=== PATIENT | male | born 1965 | race Two or more races ===

== ENCOUNTER 2018-04-07 15:46 | Inpatient (IN) | payer MEDICAID ==
[~2018-04-07] VITALS: Ht 167.6 cm; Wt 84.1 kg
[2018-04-07 15:51] VITALS: Ht 167.6 cm; Wt 84.1 kg
--- NOTE | 2018-04-07 16:13 | NUR ---
PT BIB FAMILY C/C CP STS WHILE AT WORK NO CP AT THIS TIME STS RASH X [address] ROB MANJARREZ
--- NOTE | 2018-04-07 16:33 | NUR ---
PLEASE ENTER FULL NAMES OF ACADEMIC AFFAIRS ASSISTANT/RN Patient data collected by (ACADEMIC AFFAIRS ASSISTANT):ANTHONY ALEXANDER Assessment reviewed and completed by (RN):ERNESTO SAAB
--- NOTE | 2018-04-07 16:40 | NUR ---
DR WAYNE AT BEDSIDE TO JOSSELINE
--- NOTE | 2018-04-07 17:10 | NUR ---
MEDICATED ORDERED THEN TAKEN TO RADIOLOGY FOR XRAY
[2018-04-07 17:20] LABS: PLATELET COUNT 549 x10^3mcL (130-400)
[2018-04-07 17:33] LABS: ATYPICAL LYMPH 1 %; BAND NEUTROPHIL 1 % (0-10); MONOCYTE 1 % (0-7); SEGMENTED NEUTROPHILS 90 % (37-75)
[2018-04-07 17:35] LABS: PLATELET MORPHOLOGY PLATELETS INCREASED; rbc morphology (normal/abnorm) NORMAL (NORMAL)
[2018-04-07 17:55] LABS: ALBUMIN 3.4 g/dL (3.4-5.0); ALKALINE PHOSPHATASE 208 U/L (46-116); ALT/SGPT 23 U/L (16-63); AST/SGOT 9 U/L (15-37); BILIRUBIN TOTAL 0.39 mg/dL (0.20-1.00); CALCIUM 9.8 mg/dL (8.5-10.1); CARBON DIOXIDE 25.6 mmol/L (21-32); CHLORIDE SERUM 94 mmol/L (98-107); GFR1 > 60 mL/min; POTASSIUM SERUM 4.2 mmol/L (3.5-5.1); SODIUM SERUM 129 mmol/L (136-145); TOTAL PROTEIN, SERUM 7.8 g/dL (6.4-8.2)
[2018-04-07 17:59] LABS: GLUCOSE SERUM 497 mg/dL (74-106)
--- NOTE | 2018-04-07 19:05 | NUR ---
REPORT RECEIVED FROM JOINT SEALERRyan AYON FOR CONTINUITY OF PT CARE.
--- NOTE | 2018-04-07 21:08 | NUR ---
PT LAYING ON GURNEY IN POSITION OF COMFORT, RESP E/U, ON CM, NO ACUTE DISTRESS NOTED AT THIS TIME.
--- NOTE | 2018-04-07 22:19 | NUR ---
REPORT GIVEN TO ERNESTO ORELLANA ON TELE UNIT FOR CONTINUITY OF PT CARE.
[2018-04-07 22:48] LABS: MAGNESIUM 1.7 mg/dL (1.8-2.4); PHOSPHOROUS 4.8 mg/dL (2.5-4.9)
--- NOTE | 2018-04-07 22:58 | NUR ---
PATIENT WAS BROUGHT FROM THE ED BY ETHAN ACCOMPANIED BY FAMILY. A/OX4. PATIENT IS ON ROOM AIR. NO SOB OR DISTRESS NOTED. BREATHING IS EVEN AND UNLABORED. BREATH SOUNDS ARE CLEAR. CAME IN WITH A C/O CHEST PAIN, RASH, AND A COUGH. DX WITH CHEST PAIN, RASH, AND CHOLECYSITIS. TELE #27 WITH SR. DENIES CHEST PAIN AT THIS TIME. NO C/O OF PAIN. DENIES HEADACHE AND N/V. IV TO THE RAC. PATENT AND INTACT. NO REDNESS OR SWELLING NOTED. ABD IS SOFT/ROUND. NO C/O OF ABD PAIN. NO DISTENTION NOTED. BOWEL SOUNDS ACTIVE X4. PATIENT STATES THAT HE HAS BEEN HAVE DIARRHEA AND HAD IT X6 TODAY. THIS STARTED 2 DAYS AGO. RASH NOTED ON THE ABD, BACK, AND BILATERAL AXILLA. PICTURES WERE TAKEN. ORIENTED PATIENT TO THE ROOM. FAMILY AT BEDSIDE. CALL LIGHT IS WITHIN REACH. BED IS LOCKED AND IN THE LOWEST POSITION. SIDE RAILS UP X2. INSTRUCTED PATIENT TO CALL FOR ASSISTANCE. BELONGINGS AT BEDSIDE. WILL CONTINUE TO MONITOR
[2018-04-08 00:46] VITALS: BP 107/61
--- NOTE | 2018-04-08 01:00 | NUR ---
PATIENT IS ASLEEP AT THIS TIME. ON ROOM AIR. NO SOB OR DISTRESS NOTED. NO FACIAL GRIMACING. CALL LIGHT IS WITHIN REACH. WILL CONTINUE TO MONITOR.
[2018-04-08 04:34] VITALS: BP 129/62
[2018-04-08 05:19] LABS: microscopic required? NO
[2018-04-08 05:20] VITALS: BP 101/57
[2018-04-08 06:01] LABS: UA SPECIFIC GRAVITY 1.015 (1.005-1.035); urine erythrocyte NEGATIVE (NEGATIVE)
--- NOTE | 2018-04-08 06:05 | NUR ---
PATIENT SLEPT IN INTERVALS THROUGHOUT THE NIGHT. ON ROOM AIR. NO SOB OR DISTRESS NOTED. DENIES CHEST PAIN. NO C/O OF PAIN THROUGHOUT THE NIGHT. NO ACUTE CHANGES NOTED. PATIENT NPO FOR POSS CHARLES MARLY IN THE AM. CHECKLIST STARTED. IV TO THE RAC. PATENT AND INTACT. NO REDNESS OR SWELLING NOTED. COMFORT AND SAFETY MEASURES MAINTAINED. CALL LIGHT WITHIN REACH. SIDE RAILS UP X2. BED IS LOCKED AND IN THE LOWEST POSITION. WILL ENDORSE CARE TO DAY SHIFT RN.
[2018-04-08 06:10] LABS: AMPHETAMINE QUAL UR NONE DETECTED (See below)
[2018-04-08 06:40] LABS: BASOPHIL % 0.3 % (0-2); RED CELL DISTRIBUTION WIDTH 13.4 % (11.5-14.5)
[2018-04-08 06:49] LABS: CALCIUM 8.8 mg/dL (8.5-10.1); CHLORIDE SERUM 101 mmol/L (98-107); CREATININE SERUM 0.7 mg/dL (0.7-1.3); GFR1 > 60 mL/min; GLUCOSE SERUM 301 mg/dL (74-106); POTASSIUM SERUM 3.9 mmol/L (3.5-5.1); SODIUM SERUM 132 mmol/L (136-145)
[2018-04-08 07:29] LABS: PLATELET COUNT 498 x10^3mcL (130-400)
--- NOTE | 2018-04-08 07:55 | NUR ---
RECEIVED PT IN BED. ASSESSED AND DOCUMENTED. DENIES ANY PAIN. OR NURSE AT BEDSIDE TAKING PT TO OR. PT DIDNOT SIGN CONSENT YET BECAUSE HE HAS NOT TALK TO THE DOCTOR YET. OR NURSE SAID SHE WILL DO CONSENT AND LINDA WIPE IN OR. VITAL SIGNS STABLE. CHECK LIST DONE. PT TRANSFERED TO OR BY ETHAN.
--- NOTE | 2018-04-08 11:45 | NUR ---
RECEIVED PT FROM RECOVERY ROOM AFTER LAP MARLY. PT IS AWAKE,ALERT AND ORIENTED X4. DENIES ANY PAIN. SURGICAL INCISION X4 TO ABDOMEN WITH BANDAID. MELYSSA INCISION WITH GAUZE DRESSING TO RT SIDE OF ABDOMEN. SCD'S TO BLE APPLIED. FAMILY AT BED SIDE. VITAL SIGNS CHECKED AND RECORDED. WILL MONITOR.
[2018-04-08 11:53] VITALS: BP 131/69
--- NOTE | 2018-04-08 13:15 | NUR ---
PT ATE CLEAR LIQUID DIET, TOLERATED WELL. FAMILY AT BEDSIDE. DENIES ANY PAIN. MELYSSA DRAINING SEROSANGINIOUS DRAINAGE.
[2018-04-08 17:25] VITALS: BP 121/69
--- NOTE | 2018-04-08 19:15 | NUR ---
PT RESTING IN BED COMFORTABLY. DENIES PAIN THIS TIME. VOIDED. FAMILY AT BEDSIDE. GAVE REPORT TO RESIDENT DIRECTOR NURSE.
--- NOTE | 2018-04-08 19:30 | NUR ---
PT RESTING IN BED, NO ACUTE DISTRESS NOTED. AOX4, FAMILY AT BEDSIDE. TELE #17, SR 89. DENIES CP. PULSES PALPABLE BILAT, DENIES NUMBNESS/TINGLING IN FEET. RESP EVEN AND UNLABORED, NO SOB NOTED. S/P LAP MARLY (04/08/18) WITH MELYSSA DRAIN PLACEMENT SECURED TO RT SIDED ABD DRAINING SEROSANGANEOUS FLUID. 3 ABD LAP INCISIONS CLOSED WITH CAROLANN, COVERED WITH BANDAIDS (CDI). PT HAS NOT PASSED GAS OR HAD A BM SINCE SURGERY. WILL ENCOURAGE AMBULATION. IV SITE TO RAC SALINE LOCKED. PT RECEIVING ANTIBIOTICS, ALL COMFORT AND SAFETY MEASURES PROVIDED FOR, CALL LIGHT WITHIN REACH, BED IN LOWEST POSITION, WILL CONTINUE TO MONITOR.
[2018-04-08 20:56] VITALS: BP 116/69
--- NOTE | 2018-04-08 21:24 | NUR ---
PT AMBULATED IN HALLWAY AT THIS TIME, SLOW, BUT STEADY GAIT. DAUGHTER ASSISTING HIM, PT REPORTS NO DIZZINESS OR ASHTON. WILL CONTINUE TO MONITOR PROGRESS.
--- NOTE | 2018-04-09 05:10 | NUR ---
PT RESTED IN INTERVALS DURING SHIFT, [facility] DURING SHIFT, TOLERATED WELL. PT MEDICATION ONLY ONCE WITH NORCO, EMPTIED A TOTAL OF 50CC OF SEROSANGANEOUS FLUID FROM MELYSSA DRAIN, ALL INCISIONAL DSG REMAIN CDI. TOOK PICTURES OF PT "RASH" FROM ADMISSION, NO LONGER PRESENT. PT SKIN (BACK, FLANK AREA, UNDERARM" CLEAR OF RASH. PT BLOOD SUGAR THIS AM= 241, PROVIDDD 6 UNITS REG INSULIN. PT TOLERATING FLUIDS WELL. IV SITE REMAINS PATENT TO [facility], SALINE LOCKED, RECEIVING ANTIBIOTICS AT THIS TIME. ALL COMFORT AND SAFETY MEASURES PROVIDED FOR, CALL LIGHT WITHIN REACH, BED INLOWEST POSITION, WILL CONTINUE TO MONITOR.
[2018-04-09 05:28] VITALS: BP 115/62
[2018-04-09 06:51] LABS: BASOPHIL % 0.1 % (0-2); RED CELL DISTRIBUTION WIDTH 13.4 % (11.5-14.5)
[2018-04-09 06:58] LABS: CALCIUM 8.3 mg/dL (8.5-10.1); CARBON DIOXIDE 22.9 mmol/L (21-32); CHLORIDE SERUM 101 mmol/L (98-107); CREATININE SERUM 0.7 mg/dL (0.7-1.3); GFR1 > 60 mL/min; GLUCOSE SERUM 225 mg/dL (74-106); POTASSIUM SERUM 3.1 mmol/L (3.5-5.1); SODIUM SERUM 133 mmol/L (136-145)
[2018-04-09 07:06] LABS: PLATELET COUNT 415 x10^3mcL (130-400)
[2018-04-09 08:50] VITALS: BP 120/73
--- NOTE | 2018-04-09 09:07 | NUR ---
PT SITTING UP IN BED WATCHING TV. RESPIRATIONS EQUAL AND UNLABORED ON RA. NO ACUTE RESP DISTRESS NOTED. PT STATES MILD PAIN THAT IS TOLERABLE. GIVEN PO MEDS. TOLERATED WELL. WILL CONTINUE TO MONITOR. BED IN LOWEST POSITION. CALL LIGHT IN REACH.
--- NOTE | 2018-04-09 09:42 | NUR ---
PT AMBULATING HALLWAY WITH DAUGHTERS.
--- NOTE | 2018-04-09 10:03 | NUR ---
RECEIVED PT FROM TANK STAVE ASSEMBLER ERNESTO. Chon/ANGEL. TELE #17, SR. HR 84. RESPIRATIONS EQUAL AND UNLABORED ON RA. NO ACUTE RESP DISTRESS NOTED. PT DENIES ANY PAIN AT THIS TIME. PT STATES HE HAS BEEN ABLE TO PASS GAS, NO BM YET. TOLERATES CLEAR LIQUIDS WELL. AMBULATORY. IV SALINE LOCKED TO RAC. WILL CONTINUE TO MONITOR. CALL LIGHT IN REACH. BED IN LOWEST POSITON.
[2018-04-09 12:14] VITALS: BP 132/74
--- NOTE | 2018-04-09 14:20 | NUR ---
PT SITTING UP AT BEDSIDE WITH . RESPIRATIONS EQUAL AND UNLABORED ON RA. NO ACUTE RESP DISTRESS NOTED. GIVEN PO MEDS. TOLERATED WELL. PT DENIES ANY PAIN AT THIS TIME. PT STATES HE ONLY HAS PAIN WHEN STANDING. WILL CONTINUE TO MONITOR. CALL LIGHT IN REACH. BED IN LOWEST POSITION.
--- NOTE | 2018-04-09 14:49 | NUR ---
Initial Nutrition Assessment Dx: CP, Rash, cholecystitis PMHx: DM Type II PSHx: None Labs: (04/09) Na 133L, K 3.1L, BG 225H, Lipase 224 (trending down), A1c 10.5H, WBC 17.4H, H/H 12L/35L BG accuchecks 04/08-04/09: 127-301 mg/dL with some readings >180 mg/dL. Meds: Colace, D50%, Humulin, Lactinex, Mag-Ox, Morphine, [place], Protonix, Tylenol, Zofran, Zosyn Diet: DM CLD PO Intake: (04/09) B: 100% Ht: 66" (168 cm) Wt: 185# (84.1 kg) BMI: 29.9 (Overweight) IBW: 142# %IBW: 130% UBW: 187-190# Age: 52 y/o male Food Allergies: NKFA Skin: Abdominal surgical cristofer in place s/p lap procedure and MELYSSA drain in place Kostas: 21 Edema: None GI: Last BM x 1 (04/07) none since admission Per H&P, pt. admitted with bilateral chest wall rash x 6 days associated with increased levels of perspiration related to his work. Also had c/o loose stools for several days without other symptoms of GI distress. CT pulmonary angiogram conducted on 04/07/18 with findings that suggest acute cholecystitis and distension of the gallbladder. Pt. seen sitting up in bed with family during visit. Endorses good appetite and tolerance to CLD without GI distress noted. States that he is ready for solid foods, as he is feeling hungry with CLD. DM diet education provided during visit. 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 of CCHO CLD and associated restrictions. Verbal CCHO diet education/NCM CCHO handout was provided during visit. Emphasized the importance of CCHO counting for optimal BG management. Pt. and family verbalized understanding and appreciation. Estimated Nutritional Needs Based on ideal body weight 64.5 kg: Energy: 6893-7126 kcal/d (27-30 kcal/kg- wound healing support) Protein: 65-77 g/d (1.0-1.2 g/kg)-maintenance and preservation of lean body mass Fluid: 2499-7916 ml/d (1 ml/kcal-fluid balance) or per doctor Nutrition Diagnosis 1. Inadequate PO intake r/t current diet order 2/2 recent surgical procedure AEB pt. currently on clear liquid diet, which meets <75% estimated calorie and protein needs. Intervention/RD recommendations 1. [facility] as tolerated, and continue ONS. 2. If PO intake <75% by following assessment, will consider increasing frequency of ONS. Monitor/Evaluate Goal: PO intake at least 75% of estimated needs Monitor: PO intake, Labs, GI function, diet tolerance F/U in 3-5 days as moderate risk (04/12-04/14)
--- NOTE | 2018-04-09 14:50 | NUR ---
Intervention/RD recommendations 1. Advance diet to CCHO as tolerated, and continue ONS. 2. If PO intake <75% by following assessment, will consider increasing frequency of ONS.
--- NOTE | 2018-04-09 15:43 | NUR ---
PT AMBULATING HALLWAY INDEPENDENTLY. NO ACUTE DISTRESS NOTED.
[2018-04-09 17:20] VITALS: BP 126/69
--- NOTE | 2018-04-09 17:30 | NUR ---
PT SITTING UP IN BED WATCHING TV. PT STATES HE WAS ABLE TO PASS GAS. PT DENIES ANY PAIN AT THIS TIME. DRESSING WAS CHANGED ON ABD, MINIMAL BLOOD ON DRESSINGS X3. NO REDNESS OR SWELLING NOTED. MELYSSA DRAINING SEROSANGENOUS OUTPUT 20ML. PT TOLERATED WELL. WILL CONTINUE TO MONITOR. CALL LIGHT IN REACH. BED IN LOWEST POSITION.
--- NOTE | 2018-04-09 18:47 | NUR ---
PT SITTING UP IN BED. RESPIRATIONS EQUAL AND UNLBAORED ON RA. TELE#17. DENIES CHEST PAIN/PRESSURE. PT STATES PAIN IS 2/10 TO INCISIONS, TOLERABLE. NO ACUTE DISTRESS NOTED. WILL ENDORSE TO SHOER RN. CALL LIGHT IN REACH. BED IN LOWEST POSITION.
[2018-04-09 19:10] VITALS: BP 131/71
--- NOTE | 2018-04-09 19:10 | NUR ---
RECEIVED PT AWAKE ALERT AND VERBALLY RESPONSIVE IN KHMER.S/P LAP MARLY 04/08/18.HYPOACTIVE BOWEL SOUNDS.ABDOMINAL INCISION X3 WITH BAND-AID AND 1 INCISION FOR MELYSSA WITH DRESSING CDI.MELYSSA DRAINING TO REDDISH COLORED OUTPUT IN SMALL AMT.PASSING GAS/BURPING.VOIDING FREELY.DENIES ANY PAIN AT THIS TIME.BP 131/71 MMHG,HR 78.ENCOURAGED AMBULATION AND USE OF INCENTIVE SPIROMETER.WILL CONTINUE TO MONITOR.
--- NOTE | 2018-04-10 04:52 | NUR ---
PT SLEPT WELL ALL NIGHT.DENIES PAIN AT THIS TIME.NO ASE NOTED FROM ZOSYN IV ATB.AMBULATED IN THE HALLWAY.ENCOURAGED USE OF I.S.ALL NEEDS MET.WILL CONTINUE TO MONITOR.
[2018-04-10 05:51] VITALS: BP 122/67
--- NOTE | 2018-04-10 06:15 | NUR ---
EMPTIED 20 ML PINKISH COLORED OUTPUT.WILL ENDORSE TO AM NURSE.
[2018-04-10 06:30] LABS: RED CELL DISTRIBUTION WIDTH 13.6 % (11.5-14.5)
[2018-04-10 06:38] LABS: ALKALINE PHOSPHATASE 113 U/L (46-116); ALT/SGPT 24 U/L (16-63); AST/SGOT 15 U/L (15-37); BILIRUBIN TOTAL 0.65 mg/dL (0.20-1.00); CALCIUM 8.4 mg/dL (8.5-10.1); CARBON DIOXIDE 25.9 mmol/L (21-32); CHLORIDE SERUM 99 mmol/L (98-107); CREATININE SERUM 0.6 mg/dL (0.7-1.3); GFR1 > 60 mL/min; GLUCOSE SERUM 236 mg/dL (74-106); MAGNESIUM 2.1 mg/dL (1.8-2.4); PHOSPHOROUS 2.1 mg/dL (2.5-4.9); POTASSIUM SERUM 3.7 mmol/L (3.5-5.1); SODIUM SERUM 135 mmol/L (136-145); TOTAL PROTEIN, SERUM 6.4 g/dL (6.4-8.2)
[2018-04-10 06:42] LABS: ALBUMIN 2.3 g/dL (3.4-5.0)
[2018-04-10 06:53] LABS: PLATELET COUNT 440 x10^3mcL (130-400)
--- NOTE | 2018-04-10 07:30 | NUR ---
PT SEEN SITTING ON BED SIDE. PT IS MAIN VINCENTIAN SPEAKING. PT STATED MILD PAIN WITHIN TOLERANCE. PT REPORTED JUST BM THIS MORNING. PT BREATHING ON RA, EVEN, UNLABORED. ABD MELYSSA DRAIN WITH MINIMAL LIGHT PINK SEROSANGUNEOUS DRAINAGE NOTED. DRESSING CDI. IV SITE PATENT, INTACT. ANTIBIOTIC IS INFUSING. PT'S WBC ELEVATED, WILL CONTINUE TO MONITOR.
[2018-04-10 08:00] VITALS: BP 118/71
--- NOTE | 2018-04-10 08:38 | NUR ---
DR. MILLER AT BED SIDE CHECKED PT'S INCISION SITE. SHE IS AWARE PT'S WBC ELEVATED AND ADVANCE PT'S DIET TO CCHO SINCE PT TOLERATE WELL ON CL. WILL CONTINUE TO MONITOR PT.
[2018-04-10 09:58] VITALS: BP 135/76
--- NOTE | 2018-04-10 10:05 | NUR ---
MORNING SCHEDULED MEDS GIVEN. PT REPORTED PAIN WITHIN TOLERANCE. PT AMBULATE IN THE BOCANEGRA WITH STEADY GAIT. GENET CONTINUE TO MONITOR.
[2018-04-10 10:42] LABS: BAND NEUTROPHIL 0 % (0-10); BASOPHIL 0 % (0-2); MONOCYTE 3 % (0-7); SEGMENTED NEUTROPHILS 91 % (37-75)
--- NOTE | 2018-04-10 10:42 | NUR ---
AFTER PT AMBULATE, PT ASKED TO CHECKED HIS MELYSSA DRAIN SITE. UNDER ISLAND DRESSING, DRAIN SPONGES DRESSING IS SOILED WITH SEROSANGUNEOUS DRAINAGE. MELYSSA SITE CLEANED AND DRESSING CHANGED. WILL CONTINUE TO MONITOR.
[2018-04-10 10:43] LABS: PLATELET MORPHOLOGY PLATELETS INCREASED; rbc morphology (normal/abnorm) ABNORMAL (NORMAL)
[2018-04-10 13:28] VITALS: BP 126/76
[2018-04-10 17:55] VITALS: BP 132/76
--- NOTE | 2018-04-10 18:25 | NUR ---
PT'S FAMILY MEMBERS AT BED SIDE. PT STATED INCISION SITE PAIN WITHIN TOLERANCE. THROUGH DAY, NO FEVER NOTED. PT BREATHING ON RA, EVEN, UNLABORED. PT ABLE TO AMBULATE IN THE BOCANEGRA A FEW TIMES. DRAIN SPONGES DRESSING ON MELYSSA SITE CDI AT THIS TIME. 10ML SEROSANGUNEOUS DRAINAGE THROUGH SHIFT. IV SITE PATENT, INTACT, SALINE LOCK PER ORDER. WILL ENDORSE PT'S CARE TO COMING NURSE.
[2018-04-10 20:55] VITALS: BP 137/71
--- NOTE | 2018-04-10 21:15 | NUR ---
SCHEDULED MEDICATIONS ADMINISTERED. NO SWALLOWING DIFFICULTY. PAIN MEDICATION PROVIDED WELL DUE TO PAIN VERBALIZED IN ABDOMIN.
--- NOTE | 2018-04-11 00:20 | NUR ---
PATIENT QUIETLY RESTING IN BED AT THIS TIME. ANTIBIOTICS ADMINISTERED. PATIENT DENIES ANY ABDOMINAL PAIN AT THIS TIME. MELYSSA DRAIN INTACT AND DRAIN, DRESSING CDI. CALL LIGHT WITHIN REACH.
[2018-04-11 05:08] VITALS: BP 123/72
[2018-04-11 06:32] LABS: CALCIUM 8.7 mg/dL (8.5-10.1); CHLORIDE SERUM 99 mmol/L (98-107); CREATININE SERUM 0.6 mg/dL (0.7-1.3); GFR1 > 60 mL/min; GLUCOSE SERUM 239 mg/dL (74-106); MAGNESIUM 2.2 mg/dL (1.8-2.4); PHOSPHOROUS 2.5 mg/dL (2.5-4.9); POTASSIUM SERUM 4.1 mmol/L (3.5-5.1); SODIUM SERUM 136 mmol/L (136-145)
--- NOTE | 2018-04-11 06:46 | NUR ---
PATIENT SEEN AMBULATING AROUND UNIT, VERBALIZES MINIMAL BUT TOLERABLE PAIN AT THIS TIME. EMPTIED 20CC OF YELLOW/PINK FLUID FROM RIGHT SIDE ABDOMINAL SITE MELYSSA DRAIN. DRESSING TO MELYSSA DRAIN CDI WELL BANDAIDS X3 TO ABDOMEN.
[2018-04-11 07:15] LABS: PLATELET COUNT 437 x10^3mcL (130-400); RED CELL DISTRIBUTION WIDTH 13.4 % (11.5-14.5)
--- NOTE | 2018-04-11 07:30 | NUR ---
RECEIVED PATIENT SITTING UP IN BED A/O X4, CLEAR SPEECH, NO NEURO DEFICITS NOTED. TELE # [address], DENIES CHEST PAIN. BREATHING EVEN UNLABBORED ON RA, DENIES SOB. PATIENT IS S/P LAP MARLY ON 04/08/18 WITH INCISION X3 COVERED WITH BANDAID AND MELYSSA DRAIN TO RLQ DRAINING SEROSANGUINOUS FLUID, CDI. DENIES ANY PAIN. IV TO LFA INTACT AND PATENT. PATIENT IS CALM WITH CARE. INSTRUCTED TO CALL FOR ASSISTANCE IF NEEDED. SAFETY PRECAUTIONS IN PLACE. WILL MONITOR.
--- NOTE | 2018-04-11 08:35 | NUR ---
YARELY DIALS INSPECTOR AT BEDSIDE TO SPEAK WITH PATIENT AND STEP DAUGHTER WHO IS AT BEDSIDE. PLAN OF CARE REVIEWED: PT INFORMED OF ELEVATED WBC PREVIOUS 21.2 AND TODAY WBC IS 17.2, PT BEING TREATED WITH ANTIBIOTICS, PATIENT HAD BM THIS AM, PT ENCOURAGED TO CONTINUE WALKING. ONCE CLEARED BY SURGEON AND WBC TREND DOWN BETWEEN 11-12, PT MAY BE D/C HOME. PATIENT AND STEP DAUGHTER VERBALIZED UNDERSTANDING. ALL QUESTIONS AND CONCERNS ADDRESSED.
[2018-04-11 09:59] VITALS: BP 148/78
--- NOTE | 2018-04-11 10:10 | NUR ---
DR. MILLER AT BEDSIDE TO SPEAK WITH AND ASSESS PATIENT. PATIENT DENIES ANY PAIN, EATING WELL. DR. MILLER REMOVED BANDAIDS X3 TO ABD, NOTED BLISTERS AREA WHERE BANDAIDS WERE. WILL TAKE PICTURES AND PLACE IN CHART. DR. MILLER INFORMED PATIENT WBC IS TRENDING DOWN, NOW AT 17.2. PER DR. MILLER, MELYSSA DRAIN CAN BE REMOVED AND PATIENT MAY BE D/C HOME THIS EVENING AND WILL FOLLOW UP IN HER OFFICE IN 1-2 WEEKS TO REMOVE CAROLANN. PATIENT INSTRUCTED ON NO HEAVY LIFTING FOR 1 MONTH, WILL BE GIVEN A WORK NOTE PER PATIENT REQUEST. ALL QUESTIONS AND CONCERNS ADDRESSED, PATIENT VERBALIZED UNDERSTANDING.
--- NOTE | 2018-04-11 11:03 | NUR ---
PATIENT SEEN AMBULATING IN THE HALLWAY, GAIT STEADY NO DISTRESS NOTED. WILL MONITOR.
[2018-04-11 11:16] LABS: BAND NEUTROPHIL 0 % (0-10); BASOPHIL 0 % (0-2); SEGMENTED NEUTROPHILS 95 % (37-75)
[2018-04-11 11:17] LABS: PLATELET MORPHOLOGY PLATELETS INCREASED; rbc morphology (normal/abnorm) ABNORMAL (NORMAL)
--- NOTE | 2018-04-11 11:55 | NUR ---
MELYSSA DRAIN D/C AT THIS TIME PER DR. MILLER ORDERS. PATIENT TOLERATED WELL, COVERED MELYSSA DRAIN INCISION WITH STERI-STRIPS. ALL NEEDS ATTENDED TO. SAFETY PRECAUTIONS IN PLACE. WILL MONITOR.
[2018-04-11 14:11] VITALS: BP 139/78
--- NOTE | 2018-04-11 15:30 | NUR ---
PATIENT SEEN AMBULATING IN THE HALLWAY, GAIT STEADY, NO DISTRESS NOTED. WILL CONTINUE TO MONITOR.
[2018-04-11 17:53] VITALS: BP 144/77
--- NOTE | 2018-04-11 18:10 | NUR ---
PATIENT SITTING UP AT EDGE OF BED EATING DINNER, TOLERATING WELL, NO DISTRESS NOTED. IV TO LFA H/L INTACT AND PATENT FREE FROM REDNESS AND INFILTRATION. SURGICAL INCISION TO ABD CDI, PATIENT DENIES ANY PAIN. NO ACUTE CHANGES DURING SHIFT, ALL NEEDS ATTENDED TO. SAFETY PRECAUTIONS MAINTAINED. WILL ENDORSE CARE TO ONCOMING NURSE.
--- NOTE | 2018-04-11 19:41 | NUR ---
RECEIVED PATIENT IN BED AWAKE, ALERT AND ORIENTED WITH NO C/O POST OPERATIVE PAIN AT THIS TIME. BREATHING EASY AND NONLABOR WITH CLEAR BS SATTING AT 100% RA. TELE#17 NSR ON MONITOR. SCD TO BLE IN PLACE. INCISION X3 JAMIE WITH NO BLEEDING NOTED, MELYSSA OLD SITE WITH STERI STRIP CDI. HEPLOCK TO RFA AND FLUSHED WITH NS. WILL CONTINUE TO MONITOR. CALL LIGHT WITHIN REACH.
--- NOTE | 2018-04-11 20:15 | NUR ---
C/O POST OPERATIVE PAIN AT SCALE OF 7/10 PER PATIENT MEDICATED WITH NORCO 1 TAB PO PRESCRIBED. WILL CONTINUE TO MONITOR.
[2018-04-11 21:04] VITALS: BP 152/81
--- NOTE | 2018-04-11 22:51 | NUR ---
RELIEF NOTED PER PATIENT AFTER PAIN MEDS WAS GIVEN. WILL CONTINUE TO MONITOR.
--- NOTE | 2018-04-12 05:09 | NUR ---
C/O POST OP PAIN X1 THE ENTIRE SHIFT AND MEDICATED PRESCRIBED.HAD BM X1 IN SMALL AMOUNT PER PATIENT. ALL NEEDS ATTENDED.
[2018-04-12 06:01] VITALS: BP 146/83
[2018-04-12 06:42] LABS: RED CELL DISTRIBUTION WIDTH 13.8 % (11.5-14.5)
[2018-04-12 07:18] LABS: BAND NEUTROPHIL 5 % (0-10); MONOCYTE 5 % (0-7); SEGMENTED NEUTROPHILS 80 % (37-75)
[2018-04-12 07:19] LABS: PLATELET MORPHOLOGY PLATELETS INCREASED; rbc morphology (normal/abnorm) NORMAL (NORMAL)
[2018-04-12 07:25] LABS: PLATELET COUNT 527 x10^3mcL (130-400)
--- NOTE | 2018-04-12 07:30 | NUR ---
RECEIVED PATIENT SITTING UP IN BED A/O X4, NO NEURO DEFICITS NOTED. TELE # [address], DENIES CHEST PAIN. BREATHING EVEN UNLABBORED ON RA, DENIES SOB, NO DISTRESS NOTED. PATIENT IS S/P LAP MARLY ON 04/08/18, INCISION X3 TO ABD CLOSED WITH CAROLANN BASKET HAND WEAVER, OLD MELYSSA DRAIN SITE TO RLQ ABD COVERED WITH STERI-STRIP, CDI. PATIENT DENIES ANY PAIN, AMBULATING, TOLERATING DIET WELL, HAD BM THIS AM. IV TO RFA H/L INTACT AND PATENT. PATIENT IS CALM WITH CARE. INSTRUCTED TO CALL FOR ASSISTANCE IF NEEDED. SAFETY PRECAUTION IN PLACE. WILL MONITOR.
[2018-04-12] MEDS ORDERED: METFORMIN HCL500 MG PO (08:50)
[2018-04-12] MEDS ORDERED: SIMVASTATIN20 M1 PO (08:50)
[2018-04-12 09:30] VITALS: BP 146/84
[2018-04-12 09:48] VITALS: BP 146/84
--- NOTE | 2018-04-12 10:23 | NUR ---
PATIENT STABLE FOR DISCHARGE HOME. DISCHARGE INSTRUCTIONS, PRESCRIPTION, BELONGINGS LIST AND EDUCATION GIVEN TO PATIENT AND STEP DAUGHTER PEYTON AT BEDSIDE. BOTH VERBALIZED UNDERSTANDING TO FOLLOW UP WITH PCP ON 04/19/18 AT 0930 AND TO CALL AND SCHEDULE FOLLOW UP APPOINTMENT WITHIN 1-2 WEEKS WITH SURGEON, PHONE NUMBER AND ADDRESS PROVIDED. ALL QUESTIONS AND CONCERNS ADDRESSED. IV TO LFA REMOVED, CATH INTACT. ID BANDS REMOVED, TELE MONITOR REMOVED. PATIENT ASSISTED DOWN TO LOBBY VIA WHEELCHAIR ACCOMPANIED BY NURSE AID AND PEYTON. ALL PERSONAL BELONGINS SENT HOME WITH PATIENT.
== END 2018-04-12 10:23 | disposition home or self-care (01) | DRG 710 ==
LOC: ED 15:46 → DU 20:51
PROVIDERS: Emergency Medicine; Internal Medicine; Internal Medicine Cardiovascular Disease; Surgery; ADMIT General Practice
PROC: 0FT44ZZ Resection of Gallbladder, Percutaneous Endoscopic Approach (ICD-10-PCS; principal; 2018-04-08 08:30)
DX: A41.9 Sepsis, unspecified organism (principal); K85.90 Acute pancreatitis without necrosis or infection, unspecified; E87.2 Acidosis; D68.69 Other thrombophilia; K81.0 Acute cholecystitis; E11.65 Type 2 diabetes mellitus with hyperglycemia; E83.42 Hypomagnesemia; K82.A1 Gangrene of gallbladder in cholecystitis; K66.0 Peritoneal adhesions (postprocedural) (postinfection); M94.0 Chondrocostal junction syndrome [Tietze]; R21 Rash and other nonspecific skin eruption; F10.10 Alcohol abuse, uncomplicated; E78.5 Hyperlipidemia, unspecified; Z68.28 Body mass index [BMI] 28.0-28.9, adult; Z79.84 Long term (current) use of oral hypoglycemic drugs
CPT/HCPCS: 82962; 83880; 85378; 94150; C9113; J0330; J0690; J1170; J1200; J1815; J1885; J2405; J2543; J2704; J2710; J2930; J3010; J3490; J7030; J7120; Q9967

== ENCOUNTER 2018-04-24 08:44 | Emergency (ER) | payer MEDICAID ==
[~2018-04-24] VITALS: Ht 167.6 cm; Wt 80.7 kg
[~2018-04-24 08:44] MED LIST: METFORMIN HCL500 MG PO; SIMVASTATIN20 M1 PO
[2018-04-24 08:47] VITALS: BP 144/91
== END 2018-04-24 09:42 | disposition home or self-care (01) ==
LOC: ED 08:44
DX: R10.13 Epigastric pain (principal); R10.33 Periumbilical pain; E11.9 Type 2 diabetes mellitus without complications; Z48.01 Encounter for change or removal of surgical wound dressing